=== PATIENT | female | born 1940 | race Caucasian/White ===

== ENCOUNTER 2016-11-04 10:58 | Inpatient (IN) | payer OTHER ==
[~2016-11-04] VITALS: Ht 154.9 cm; Wt 66.8 kg
[2016-11-04 14:10] VITALS: BP 130/66; PULSE 85; TEMP 37.9; Ht 154.9 cm; Wt 66.8 kg
[2016-11-04 14:54] VITALS: BP 120/67; PULSE 87; TEMP 37.5; O2SAT 93
[2016-11-04] MEDS ORDERED: NURSING VERBAL MED ORDER ONE ×2 (15:00→18:00)
[2016-11-04] MEDS ORDERED: LISIPOW (15:05)
[2016-11-04] MEDS ORDERED: LISI-725 PO (15:05)
[2016-11-04] MEDS ORDERED: LEVOPOW36 (15:07)
[2016-11-04] MEDS ORDERED: BMX1 PO (15:37)
[2016-11-04] MEDS ORDERED: MULT-506 PO (15:37)
[2016-11-04] MEDS ORDERED: DLN100 PO ×2 (15:37)
[2016-11-04] MEDS ORDERED: METO1TAB69 PO (15:37)
[2016-11-04] MEDS ORDERED: FOLI1TAB7 PO (15:37)
[2016-11-04] MEDS ORDERED: SIMV40TA2 PO (15:37)
[2016-11-04] MEDS ORDERED: METH2.5T PO (15:37)
[2016-11-04] MEDS ORDERED: CHOL2000 PO (15:37)
[2016-11-04] MEDS ORDERED: SULF500T36 PO (15:37)
[2016-11-04] MEDS ORDERED: FSMD/70 PO (15:37)
[2016-11-04] MEDS ORDERED: LEVO50TA6 PO (15:37)
[2016-11-04] MEDS ORDERED: CALC1TAB9 (15:37)
[2016-11-04] MEDS ORDERED: IBUP-103 PO (15:37)
[2016-11-04] MEDS ORDERED: ONDANSETRON INJ 2 MG/ML 2 ML VIAL IV PRN (16:00)
[2016-11-04] MEDS ORDERED: HYDROmorphone INJ 1 MG/ML SYR IV PRN (16:00)
[2016-11-04] MEDS: SODIUM CHLORIDE 0.9% 1000ML 1,000 ML IV SCH (16:09)
--- NOTE | 2016-11-04 16:35 | DIAGNOSTIC IMAGING REPORT ---
RIGHT HIP UNILATERAL 2 VIEWS CLINICAL HISTORY: Right hip pain. COMPARISON: Outside CT scan dated 11/04/2016 DISCUSSION: There is a subcapital right hip fracture. There is no dislocation. IMPRESSION: Acute minimally displaced subcapital right hip fracture. Electronically signed by: Marty Casas M.D. 11/04/2016 4:33 PM Dictated Date/Time: 11/04/2016 4:32 PM
[2016-11-04] MEDS ORDERED: PNEUMOCOCCAL POLYSACCHARIDES 25 MCG/0.5 ML VIAL/SYR IM. ONE (16:45)
[2016-11-04] MEDS ORDERED: PNEUMOCOCCAL ADMINISTRATION CHARGE ONE (16:45)
[2016-11-04] MEDS: OXYCODONE HCL IR 5 MG TAB (IMMEDIATE RELEASE) PO PRN ×2 (17:41→21:39)
[2016-11-04] MEDS: HYDROmorphone INJ 1 MG/ML SYR IV PRN (19:18)
[2016-11-04 20:44] LABS: HEMATOCRIT 36.7 % (37-47); MEAN CELL VOLUME 98.4 fL (80-100); MEAN CORPUSCULAR HGB CONC 33.5 g/dl (32-36); PLATELET COUNT 247 K/uL (130-400); RED BLOOD COUNT 3.73 M/uL (4.2-5.4)
--- NOTE | 2016-11-04 21:00 | DIAGNOSTIC IMAGING REPORT ---
CHEST ONE VIEW PORTABLE CLINICAL HISTORY: Preop chest SUBCAPITAL RIGHT HIP FRACTURE COMPARISON STUDY: Outside study dated 11/04/2016 FINDINGS: The cardiac and mediastinal contours remain stable. There is no focal pulmonary consolidation. There is no failure. No pleural effusions are visualized. Surgical clips are present in the left axillary region.[ IMPRESSION: AP portable study. No acute findings. Electronically signed by: Marty Casas M.D. 11/04/2016 8:59 PM Dictated Date/Time: 11/04/2016 8:58 PM
--- NOTE | 2016-11-04 21:05 | Medical Consult ---
Consultation Date of Consultation: Nov 04, 2016. Attending Physician: Austyn Santo D.O. History of Present Illness 76 y/o F hx RA, HTN, seizures - pt suffered a fall during rehab today and sustained a She is due for surgery AM and the medical service is asked to see her for a preop evaluation. She had lumbar spine surgery 05/13 which per the pt was uncomplicated. She has no history opf coagulopathy, reaction to anesthesia, PAT , CAD or CHF. Her mobility is limited however she denies becoming SOB when participating in PT or ambulating in general. Family History Father from "old age" 90 Mother form "heart problems" 80 Social History No history of drinking or smoking Smoking Status: Never Smoker Allergies Coded Allergies: No Known Allergies (Unverified , 11/04/16) Current Inpatient Medications Current Inpatient Medications Medications (Trade) Dose Ordered Sig/[place]rence Route Start Time Stop Time Status Last Admin Dose Admin Pneumococcal Polysaccharide Vaccine 25 mcg 25 mcg ONCE ONCE IM. 11/05/16 08:00 11/05/16 08:01 Sodium Chloride (Nss 1000ml) 1,000 ml @ 100 mls/hr Q10H IV 11/04/16 16:00 12/04/16 15:59 11/04/16 16:09 100 MLS/HR Lisinopril (Zestril Tab) 20 mg DAILY PO 11/05/16 09:00 12/05/16 08:59 Oxycodone HCl (Roxicodone Immediate Rel Tab) `1-2 tabs for pain 1 tab ... Q4H PRN PO 11/04/16 16:00 11/18/16 15:59 11/04/16 17:41 10 MG Docusate Sodium (coLACE CAP) 100 mg BID PO 11/04/16 21:00 12/04/16 20:59 Ondansetron HCl 4 mg 4 mg Q6H PRN IV 11/04/16 16:00 12/04/16 15:59 Cefazolin Sodium (Ancef 2000mg/60 ml D5W) 60 ml @ 100 mls/hr PREOP IV 11/05/16 06:00 11/05/16 18:00 Hydromorphone HCl (Dilaudid Inj) 0.3 mg Q4H PRN IV 11/04/16 18:15 11/18/16 18:14 11/04/16 19:18 0.3 MG Review of Systems Constitutional: No chills, No fever, No sweats Eyes: No eye pain, No worsening of vision ENT: No hearing loss, No nasal symptoms, No unusual epistaxis Respiratory: No cough, No sputum, No wheezing Cardiovascular: No PND, No chest pain, No orthopnea Abdomen: No nausea, No pain, No vomiting Musculoskeletal: + joint pain (Pain at fracture site R hip), + muscle pain Genitourinary - Female: No dysuria, No urinary frequency, No urinary urgency Neurologic: No memory loss, No paralysis, No weakness Psychiatric: No depression symptoms Endocrine: No fatigue Hematologic / Lymphatic: No abnormal bleeding/bruising Integumentary: No rash Allergic / Immunologic: No environmental allergies Physical Exam Date Time Temp Pulse Resp B/P Pulse Ox O2 Delivery O2 Flow Rate FiO2 11/04/16 16:00 Room Air 11/04/16 14:54 37.5 87 16 120/67 93 Room Air 11/04/16 14:10 37.9 85 22 130/66 Room Air General Appearance: WD/WN, no apparent distress Head: normocephalic, atraumatic Eyes: normal inspection, PERRL, EOMI ENT: normal ENT inspection, hearing grossly normal Neck: supple, no JVD Respiratory/Chest: chest non-tender, lungs clear, normal breath sounds Cardiovascular: regular rate, rhythm, no edema, no gallop Abdomen/GI: normal bowel sounds, non tender, soft Back: normal inspection, no CVA tenderness Extremities/Musculoskelatal: no calf tenderness, no pedal edema, + pertinent finding (Arthritic changes of hands noted - RLE - shotening/rotation) Neurologic/Psych: floor refinisher II-XII nml as tested, no motor/sensory deficits, alert, normal mood/affect, normal reflexes, oriented x 3 Skin: normal color, warm/dry, no rash Laboratory Results Last 24 Hours Test 11/04/16 20:30 11/04/16 20:45 White Blood Count 15.10 K/uL Red Blood Count 3.73 M/uL Hemoglobin 12.3 g/dL Hematocrit 36.7 % Mean Corpuscular Volume 98.4 fL Mean Corpuscular Hemoglobin 33.0 pg Mean Corpuscular Hemoglobin Concent 33.5 g/dl RDW Standard Deviation 53.3 fL RDW Coefficient of Variation 15.0 % Platelet Count 247 K/uL Mean Platelet Volume 9.0 fL Assessment & Plan 76 y/o F post hip fracture presenting for AM repair 1) Pre-op - as above no major risk appreciated and recent major surgery which was uncomplicated, EKG WNL - RCRI < 0.4% although it is not possible to properly gauge her exercise tolerance. Can likely proceed to surgery without further W/U. Hold Bumex, Lisinopril, cont Bblocker - check renal function ( labs pending), 2) HTN - Bumex and Lisinopril held - monitor BP - reintroduce post-op after BMP if unchanged although Bumex can be held for a few days - used for LE edema rather than CHF 3) Seizure disorder - continue Dilantin 4) RA - would consult her diagrammer and seamer regarding holding MTX for a few weeks to reduce risk of post-op infection - she is due to take next Sun. Med service will follow daily pending D/C Total time for this consult including review of labs, meds, EKG - discussion/ exam with pt - 29 min
[2016-11-04] MEDS: DOCUSATE SODIUM 100 MG CAP PO SCH (21:37)
[2016-11-04] MEDS: PHENYTOIN SODIUM ER 100 MG CAP PO SCH (21:37)
[2016-11-04 22:54] VITALS: BP 118/76; PULSE 89; TEMP 36.5; O2SAT 97
[2016-11-05] VITALS (16 sets, daily range): BP systolic 74–131; BP diastolic 43–72; PULSE 62–100; TEMP 36.3–37; O2SAT 93–100
[2016-11-05] MEDS: HYDROmorphone INJ 1 MG/ML SYR IV PRN ×10 (00:12→10:30)
[2016-11-05] MEDS: SODIUM CHLORIDE 0.9% 1000ML 1,000 ML IV SCH ×3 (01:29→21:09)
[2016-11-05] MEDS: LEVOTHYROXINE 50 MCG TAB PO SCH ×3 (05:25→11:16)
[2016-11-05] MEDS ORDERED: CEFAZOLIN 2000 MG/60 ML D5W IV SCH (06:00)
[2016-11-05] MEDS ORDERED: PROPOFOL IV EMULSION 10 MG/ML 20 ML VIAL IV ONE (07:15)
[2016-11-05] MEDS ORDERED: LIDOCAINE HCL 2% 2 ML VIAL (20MG/ML) ONE (07:15)
[2016-11-05] MEDS ORDERED: ONDANSETRON INJ 2 MG/ML 2 ML VIAL ONE (07:15)
[2016-11-05] MEDS ORDERED: FENTANYL CITRATE INJ 50 MCG/1 ML 2 ML VIAL ONE ×2 (07:15→08:49)
[2016-11-05] MEDS ORDERED: ROCURONIUM BROMIDE 10 MG/ML 5 ML VIAL ONE (07:38)
[2016-11-05] MEDS: METOPROLOL SUCC 50MG EXT REL TAB PO SCH (07:38)
[2016-11-05] MEDS ORDERED: DEXAMETHASONE SOD INJ 4 MG/ML VIAL ONE (07:38)
[2016-11-05] MEDS ORDERED: PNEUMOCOCCAL ADMINISTRATION CHARGE ONE (08:00)
[2016-11-05] MEDS ORDERED: PNEUMOCOCCAL POLYSACCHARIDES 25 MCG/0.5 ML VIAL/SYR IM. ONE (08:00)
--- NOTE | 2016-11-05 08:12 | History and Physical ---
History & Physical Date Nov 05, 2016. Chief Complaint Right femoral neck fracture. Fall at home. History of Present Illness The patient is a 76 year old female with complaints of right hip fracture. Past Medical/Surgical History Hypertension, hypercholesterolemia, seizure disorder, arthritis, osteoporosis, RA, Back fusion, Cataracts, Breast lumpectomy left.. Allergies Coded Allergies: No Known Allergies (Unverified , 11/04/16) Home Medications Scheduled Alendronate/Cholecalciferol (Fosamax+D 70MG/2800 Iu), 1 TABLET PO WK Bumetanide (Bumetanide), 2 MG PO BID Calcium Citrate-Vitamin D (Citracal + D3 Maximum), DAILY Cholecalciferol (Vitamin D3), 1 CAP PO DAILY Folic Acid (Folvite), 1 TAB PO DAILY Ibuprofen Tab (Advil), 200 MG PO BID Levothyroxine Sodium (Levothyroxine Sodium), 1 TAB PO DAILY Lisinopril (Zestril), 20 MG PO DAILY Methotrexate (Methotrexate), 2.5 MG PO 10XWK Metoprolol Succ (Toprol Xl) (Toprol-Xl ), 100 MG PO DAILY Multivitamin (Multivitamin), 1 TAB PO DAILY Phenytoin Sodium (Dilantin), 100 MG PO QDB Phenytoin Sodium (Dilantin), 200 MG PO HS Simvastatin (Zocor), 40 MG PO DAILY Sulfasalazine (Azulfidine), 1,000 MG PO BID Physical Examination Skin: warm/dry, no rash Eyes: normal inspection, EOMI, sclerae normal ENT: normal ENT inspection, pharynx normal Head: normocephalic, atraumatic Neck: supple, no adenopathy, trachea midline Respiratory/Chest: lungs clear, normal breath sounds, no respiratory distress Cardiovascular: regular rate, rhythm, no edema, no murmur Abdomen / GI: normal bowel sounds, non tender Back: normal inspection Extremities: + pertinent finding (right hip/groin pain and tenderness with exam. Pain with heel strike and internal/external rotation right hip, DP/PT 2/4 B LE) Neurologic/Psych: no motor/sensory deficits, alert, normal reflexes, oriented x 3 Diagnosis Right minimally displaced femoral neck fracture S/P fall at home. ASA Classification: ASA Class III (d/w anesthesia) Plan of Treatment ORIF right hip fracture. Pre op anbx Consent on chart.
--- NOTE | 2016-11-05 08:12 | History & Physical Bridge Note ---
H&P Re-Evaluation Bridge Note: I have examined the patient, reviewed the History & Physical and in the interval since the performance of the History & Physical I have noted the following changes of clinical significance: No changes noted
[2016-11-05] MEDS ORDERED: PHENYLEPHRINE 100MCG/ML 5ML SYR ONE (08:22)
[2016-11-05] MEDS ORDERED: CEFAZOLIN SOD 1 GM VIAL ONE (08:23)
[2016-11-05] MEDS ORDERED: ONDANSETRON INJ 2 MG/ML 2 ML VIAL IV PRN (08:45)
[2016-11-05] MEDS ORDERED: FLUMAZENIL 0.1 MG/1 ML 10 ML VIAL IV PRN (08:45)
[2016-11-05] MEDS ORDERED: EpHEDrine SULFATE INJ 50 MG/ML AMP IV PRN (08:45)
[2016-11-05] MEDS ORDERED: NALOXONE HCL 0.4 MG/1 ML VIAL/CARP IV PRN (08:45)
[2016-11-05] MEDS ORDERED: PROMETHAZINE HCL INJ 12.5 MG in SODIUM CHLORIDE 0.9% 50ML 50 ML IV PRN (08:45)
[2016-11-05] MEDS ORDERED: ATROPINE SULFATE 0.1 MG/ML 5ML SYR IV PRN (08:45)
[2016-11-05] MEDS ORDERED: LABETALOL HCL IV 5 MG/ML 20ML IV PRN (08:45)
[2016-11-05] MEDS ORDERED: LISINOPRIL 20 MG TAB PO SCH (09:00)
[2016-11-05] MEDS ORDERED: NEOSTIGMINE METHYLSULFATE 5 MG/5 ML SYR ONE (09:32)
[2016-11-05] MEDS ORDERED: GLYCOPYRROLATE INJ 0.2 MG/ML VIAL ONE (09:32)
[2016-11-05] MEDS ORDERED: HYDROmorphone INJ 2 MG/ML SYR/VIAL ONE (09:58)
--- NOTE | 2016-11-05 10:04 | [facility] Post Operative Brief Note ---
Immediate Operative Summary Operative Date Nov 05, 2016. Pre-Operative Diagnosis Right minimally displaced femoral neck fracture Post-Operative Diagnosis Same as preoperative diagnosis Procedure(s) Performed Open reduction internal fixation right femoral neck fracture, cannulated screws. Surgeon Dr. Santo Soda Maker Surgeon(s) Shaheen Gomez PA-C Estimated Blood Loss 15 ml Findings See Dict Specimens None Drains None Anesthesia GLMA Complication(s) None Disposition Recovery Room / PACU
--- NOTE | 2016-11-05 10:09 | DIAGNOSTIC IMAGING REPORT ---
INTRAOPERATIVE RADIOGRAPHS CLINICAL HISTORY: Open reduction and internal fixation of the right hip. Fluoroscopy time: 157 seconds. FINDINGS: 2 spot fluoroscopic views of the right hip are correlated with radiographs dated 11/04/2016. There are 3 intertrochanteric cortical lag screws transfixing a subcapital right femoral fracture. The orthopedic hardware appears intact. IMPRESSION: Intraoperative images from open reduction and internal fixation of the right femur as above. Electronically signed by: Zohaib Walker M.D. 11/05/2016 10:07 AM Dictated Date/Time: 11/05/2016 10:06 AM
[2016-11-05] MEDS ORDERED: BISACODYL 10 MG SUPP PR PRN (10:15)
[2016-11-05] MEDS ORDERED: ZOLPIDEM TARTRATE 5 MG TAB PO PRN (10:15)
[2016-11-05] MEDS ORDERED: MAGNESIUM HYDROXIDE SUSP 30 ML UDC PO PRN (10:15)
[2016-11-05] MEDS ORDERED: SOD PHOSPHATE/SOD BIPHOSPHATE ENEMA 132 ML BTL PR PRN (10:15)
[2016-11-05] MEDS ORDERED: OXYCODONE HCL IR 5 MG TAB (IMMEDIATE RELEASE) PO PRN (10:15)
[2016-11-05] MEDS ORDERED: NO NSAIDS SCH (10:15)
[2016-11-05] MEDS ORDERED: ALUMINUM/MAGNESIUM/SIMETH (MAALOX MAX) 30 ML UDC PO PRN (10:15)
--- NOTE | 2016-11-05 10:42 | Anesthesiology Progress Note ---
Anesthesia Post Op Note Date & Time Nov 05, 2016 at 10:42 Vital Signs Pain Intensity: 2 Vital Signs Past 12 Hours Date Time Temp Pulse Resp B/P Pulse Ox O2 Delivery O2 Flow Rate FiO2 11/05/16 10:30 36.5 66 16 106/57 99 Nasal Cannula 2 11/05/16 10:20 65 16 104/54 98 Nasal Cannula 2 11/05/16 10:10 70 16 108/67 99 Nasal Cannula 2 11/05/16 10:00 78 16 75/48 95 Nasal Cannula 2 11/05/16 09:53 36.6 82 16 97/50 98 Nasal Cannula 2 11/05/16 07:35 95 112/61 95 Room Air 11/05/16 07:10 36.7 100 21 119/50 99 Room Air 11/05/16 05:47 36.7 94 18 130/71 94 Room Air 11/05/16 00:15 Room Air 11/04/16 22:54 36.5 89 16 118/76 97 Room Air Notes Mental Status: alert / awake / arousable, participated in evaluation Pt Amnestic to Procedure: Yes Nausea / Vomiting: adequately controlled Pain: adequately controlled Airway Patency, RR, SpO2: stable & adequate BP & HR: stable & adequate Hydration State: stable & adequate Anesthetic Complications: no major complications apparent
--- NOTE | 2016-11-05 10:59 | OPERATIVE REPORT ---
DATE OF OPERATION: 11/05/2016 PREOPERATIVE DIAGNOSIS: Right minimally displaced femoral neck fracture. POSTOPERATIVE DIAGNOSIS: Same. PROCEDURE: Open reduction and internal fixation of right femoral neck fracture with cannulated screws x3. SURGEON: Dr. Austyn Santo. PRE SCHOOL MANAGER: Artem Gomez PA-C, who was present for patient positioning, sterile prep and drape, management of retractors and instruments. He was present through the critical portions of the case including wound closure, application of sterile dressing and transport of the patient to recovery. ANESTHESIA: General LMA. SPECIMENS: None. DRAINS: None. COMPLICATIONS: None. BLOOD LOSS: 15 mL. PERTINENT HISTORY: This is a 76-year-old female, who tripped and fell at her home, transported initially to [facility] for definitive care and management. The patient was scheduled for surgery as indicated. All potential risks, benefits, complications, alternatives, rehab, potential for incomplete relief of symptoms, need for further surgery, DVT, PE, , persistent pain, swelling, scarring, weakness, neurovascular injury, bone fracture, hardware failure, nonunion, malunion, and wound complications were discussed with the patient. The patient decided to proceed with the procedure as indicated. DESCRIPTION OF PROCEDURE: The patient was taken to the operative suite, placed supine on the operating room table. The consent was reviewed and proper operative site was identified and then anesthesia was administered appropriately. Next, the patient was placed on the fracture table. The affected limb was placed to padded boot traction and the unaffected leg was placed in a well leg hernandez, flexed and abducted and slightly externally rotated. The well leg was then padded and protected. All other bony prominences were properly padded and protected. The post was padded in the peroneum. Next, the affected limb was placed under appropriate traction using the fracture table and initial reduction was performed under live fluoroscopic assistance. Next, the affected hip was then sterilely prepped and draped in usual fashion. Next, the greater trochanter of the hip was visualized under C-arm fluoroscopy. A 10 blade scalpel incision was made along the lateral aspect of the hip inferior to the greater trochanter. This incision was then carefully deepened through subcutaneous tissue. Meticulous hemostasis was achieved with electrocautery. Next, the iliotibial band was then incised with a 10 blade scalpel and appropriate bleeders were cauterized as well. Next, using live fluoroscopic assistance 7.3 mm cannulated guide pin was placed into the central aspect of the lateral femur directed into the inferior one-third of the femoral neck and head, inferior and central both confirmed with AP and lateral projections. Next, the cannulated guide was then used to place 2 further 7.3 mm cannulated screw guide pins superior anterior and superior posterior in relation to the inferiorly placed guide pin under AP and lateral live fluoroscopic assistance. Next, the guide pins were all noted to be within 5 mm of the subchondral bone on AP and lateral projections. This was then followed by measurement of the appropriate length for planned screw implantation and then the lateral cortex was drilled, this followed by countersinking of the planned screw sites followed by implantation of the 7.3 mm cannulated screws of appropriate length. This was confirmed under live fluoroscopic assistance. Next, a hand screwdriver was used to tighten the screws to fully seat the fracture and compress it confirmed using x-ray. Next, the guide pins were removed. The wound was copiously irrigated with sterile normal saline. Final x-rays obtained in both AP and lateral projections, followed by final irrigation with sterile normal saline, closure of the fascia with interrupted #1 Vicryl sutures, closure of the dermis with buried interrupted 2-0 Vicryl. The skin was then closed using skin manan. A sterile compressive dressing was applied. The patient was awakened and taken to recovery in stable condition. I attest to the content of the Intraoperative Record and any orders documented therein. Any exceptio ns are noted below.
[2016-11-05] MEDS: SIMVASTATIN 40 MG TAB PO SCH (13:54)
[2016-11-05] MEDS: PHENYTOIN SODIUM ER 100 MG CAP PO SCH ×2 (13:54→20:53)
[2016-11-05] MEDS: DOCUSATE SODIUM 100 MG CAP PO SCH ×2 (13:55→20:52)
[2016-11-05] MEDS: ACETAMINOPHEN 500 MG TAB PO SCH ×2 (13:55→20:54)
--- NOTE | 2016-11-05 14:42 | Progress Note ---
Subjective Date of Service: Nov 05, 2016. Subjective Pt evaluation today including: conversation w/ patient, conversation w/ family (), physical exam, review of studies, review of inpatient medication list Pain: right hip, less than yesterday PO Intake: tolerating PO since surgery Voiding: zavala catheter in place patient doing better overall, less pain in the right hip, surgery went well today no chest pain, no dyspnea, no nausea, no abdominal pain, no light headedness tolerating liquids, ate a little lunch BP running low normal, no symptoms Review of Systems Musculoskeletal: + joint pain (right hip) All Other Systems: Reviewed and Negative Medications Current Inpatient Medications Medications (Trade) Dose Ordered Sig/[place]rence Route Start Time Stop Time Status Last Admin Dose Admin Sodium Chloride (Nss 1000ml) 1,000 ml @ 100 mls/hr Q10H IV 11/04/16 16:00 12/04/16 15:59 11/05/16 11:00 100 MLS/HR Oxycodone HCl (Roxicodone Immediate Rel Tab) `1-2 tabs for pain 1 tab ... Q4H PRN PO 11/04/16 16:00 11/18/16 15:59 11/04/16 21:39 10 MG Docusate Sodium (coLACE CAP) 100 mg BID PO 11/04/16 21:00 12/04/16 20:59 11/05/16 13:55 100 MG Ondansetron HCl 4 mg 4 mg Q6H PRN IV 11/04/16 16:00 12/04/16 15:59 11/04/16 21:07 4 MG Cefazolin Sodium (Ancef 2000mg/60 ml D5W) 60 ml @ 100 mls/hr PREOP IV 11/05/16 06:00 11/05/16 18:00 11/05/16 08:31 100 MLS/HR Hydromorphone HCl (Dilaudid Inj) 0.3 mg Q4H PRN IV 11/04/16 18:15 11/18/16 18:14 11/05/16 05:07 0.3 MG Folic Acid (Folvite Tab) 1 mg DAILY PO 11/05/16 09:00 12/05/16 08:59 11/05/16 13:55 1 MG Levothyroxine Sodium (Synthroid Tab) 50 mcg DAILYBB PO 11/05/16 06:00 12/05/16 05:59 11/05/16 11:16 50 MCG Metoprolol Succinate (Toprol Xl Tab) 150 mg DAILY PO 11/05/16 09:00 12/05/16 08:59 11/05/16 07:38 150 MG Phenytoin Sodium (Dilantin Er Cap) 100 mg QDB PO 11/05/16 08:30 12/05/16 08:29 11/05/16 13:54 100 MG Phenytoin Sodium (Dilantin Er Cap) 200 mg HS PO 11/04/16 21:00 12/04/16 20:59 11/04/16 21:37 200 MG Simvastatin (Zocor Tab) 40 mg DAILY PO 11/05/16 09:00 12/05/16 08:59 11/05/16 13:54 40 MG Miscellaneous Medication (No Nsaids) 1 ea UD N/A 11/05/16 10:15 12/05/16 10:14 Morphine Sulfate (MoRPHine SULFATE INJ) 1 mg Q1HWA PRN IV 11/05/16 10:15 11/19/16 10:14 Acetaminophen (Tylenol Tab) 1,000 mg Q8H PO 11/05/16 12:00 12/05/16 11:59 11/05/16 13:55 1,000 MG Magnesium Hydroxide (Milk Of Magnesia Susp) 30 ml Q6H PRN PO 11/05/16 10:15 12/05/16 10:14 Bisacodyl (Dulcolax Supp) 10 mg DAILY PRN MN 11/05/16 10:15 12/05/16 10:14 Sodium Biphosphate/ Sodium Phosphate (Fleet Enema) 132 ml DAILY PRN MN 11/05/16 10:15 12/05/16 10:14 Senna (Senokot Tab) 17.2 mg HS PO 11/05/16 21:00 12/05/16 20:59 Diphenhydramine HCl (Benadryl Cap) 25 mg Q8H PRN PO 11/05/16 10:15 12/05/16 10:14 Al Hydrox/Mg Hydrox/Simethicone (Maalox Max Susp) 15 ml Q4H PRN PO 11/05/16 10:15 12/05/16 10:14 Zolpidem Tartrate (Ambien Tab) 5 mg HSZ PRN PO 11/05/16 10:15 12/05/16 10:14 Multivitamins (Multivitamin Tab) 1 tab QAM PO 11/06/16 09:00 12/06/16 08:59 Pantoprazole Sodium 40 mg 40 mg QAM PO 11/06/16 09:00 12/06/16 08:59 Cefazolin Sodium/ Dextrose (Ancef Iv/D5 50ml) 55 ml @ 100 mls/hr Q8H IV 11/05/16 16:00 11/06/16 00:32 Enoxaparin Sodium (Lovenox Inj) 30 mg Q12H SQ 11/05/16 10:15 12/05/16 10:14 UNV Objective Vital Signs Date Time Temp Pulse Resp B/P Pulse Ox O2 Delivery O2 Flow Rate FiO2 11/05/16 14:00 70 16 98/61 99 Nasal Cannula 2.0 11/05/16 12:56 36.5 78 20 97/61 99 Nasal Cannula 2.0 11/05/16 12:06 36.4 66 20 104/64 100 Nasal Cannula 2.0 11/05/16 11:31 36.3 65 17 106/68 99 Nasal Cannula 2.0 11/05/16 11:00 36.6 71 16 104/61 99 Nasal Cannula 2.0 11/05/16 11:00 Nasal Cannula 2.0 11/05/16 10:50 36.5 62 16 105/57 100 Nasal Cannula 2 11/05/16 10:40 36.5 62 16 105/57 100 Nasal Cannula 2 11/05/16 10:30 36.5 66 16 106/57 99 Nasal Cannula 2 11/05/16 10:20 65 16 104/54 98 Nasal Cannula 2 11/05/16 10:10 70 16 108/67 99 Nasal Cannula 2 11/05/16 10:00 78 16 75/48 95 Nasal Cannula 2 11/05/16 09:53 36.6 82 16 97/50 98 Nasal Cannula 2 11/05/16 07:35 95 112/61 95 Room Air 11/05/16 07:10 36.7 100 21 119/50 99 Room Air 11/05/16 05:47 36.7 94 18 130/71 94 Room Air 11/05/16 00:15 Room Air 11/04/16 22:54 36.5 89 16 118/76 97 Room Air 11/04/16 16:00 Room Air 11/04/16 14:54 37.5 87 16 120/67 93 Room Air Physical Exam General Appearance: WD/WN, no apparent distress Eyes: normal inspection, EOMI, sclerae normal ENT: normal ENT inspection, hearing grossly normal, pharynx normal Neck: supple, no adenopathy, no JVD, trachea midline Respiratory/Chest: chest non-tender, lungs clear, normal breath sounds, no respiratory distress, no accessory muscle use Cardiovascular: regular rate, rhythm, no edema, no gallop, no JVD, no murmur Abdomen: normal bowel sounds, non tender, soft, no organomegaly Extremities: normal range of motion, non-tender, normal inspection, no pedal edema, no calf tenderness Neurologic/Psychiatric: video software engineer II-XII nml as tested, no motor/sensory deficits, alert, normal mood/affect, oriented x 3 Skin: normal color, warm/dry, no rash Laboratory Results Last 24 Hours Test 11/04/16 20:30 11/04/16 21:10 White Blood Count 15.10 K/uL Red Blood Count 3.73 M/uL Hemoglobin 12.3 g/dL Hematocrit 36.7 % Mean Corpuscular Volume 98.4 fL Mean Corpuscular Hemoglobin 33.0 pg Mean Corpuscular Hemoglobin Concent 33.5 g/dl RDW Standard Deviation 53.3 fL RDW Coefficient of Variation 15.0 % Platelet Count 247 K/uL Mean Platelet Volume 9.0 fL Pro-B-Type Natriuretic Peptide 585 pg/ml Activated Partial Thromboplast Time 25.8 SECONDS Partial Thromboplastin Ratio 1.0 Assessment and Plan 76 y/o F with h/o HTN, presented with right hip fracture after a mechanical fall , no loss of consciousness. 1) Right hip fracture, ORIF on 11/05, no complications BP running low normal, no symptoms, continue fluids overnight and encourage PO intake, hold BP medications activity level, DVT prophylaxis and d/c planning per orthopedics encourage ISB use, will watch for return of bowel function 2) HTN - continue to hold Bumex and Lisinopril, check BMP tomorrow AM, can resume Lisinopril if Cr normal and BP improves would hold Bumex until discharge, she takes for LE edema continue beta kelle with hold parameters 3) Seizure disorder - continue Dilantin 4) RA - would consult her bulk intake worker regarding holding MTX for a few weeks to reduce risk of post-op infection - she is due to take next Sun. can call them on discharge Plan: check CBC and BMP in the morning, look for BP to normalize, if BP improves and she is taking PO, would d/c fluids tomorrow consider signing off tomorrow if labs normal and BP improves
[2016-11-05] MEDS: OXYCODONE HCL IR 5 MG TAB (IMMEDIATE RELEASE) PO PRN ×2 (14:44→22:19)
[2016-11-05] MEDS ORDERED: NURSING VERBAL MED ORDER ONE (15:15)
[2016-11-05] MEDS: CEFAZOLIN IV 1,000 MG in DEXTROSE 5% 50ML 50 ML IV SCH ×2 (15:47→23:14)
--- NOTE | 2016-11-05 15:52 | Pharmacy Progress Note ---
Enoxaparin Dosing Consult Date of Service: Nov 05, 2016. Pharmacy Dosing Scope Pharmacy is consulted to review the use of ENOXAPARIN SQ for DVT prophylaxis following ORIF of R hip fx. Subjective The patient is a 76 year old female admitted on Nov 04, 2016 at 13:48 for Rt Hip Fracture following fall. Pertinent PMH: * hypertension * seizure d/o * rheumatoid arthritis * osteoarthritis * back fusion * hypercholesterolemia Objective Height (Feet): 5 Height (Inches): 1.00 Weight (Kilograms): 66.800 Laboratory Results: Last 24 Hours Test 11/04/16 20:30 11/04/16 21:10 Hematocrit 36.7 % (37-47) Hemoglobin 12.3 g/dL (12.0-16.0) Platelet Count 247 K/uL (130-400) Activated Partial Thromboplast Time 25.8 SECONDS (21.0-31.0) Partial Thromboplastin Ratio 1.0 Last 72 Hours Test 11/04/16 20:30 Platelet Count 247 K/uL Assessment & Plan Regarding PROPHYLACTIC Enoxaparin: We have no labs to assess patient's baseline renal function. Will check PRP with AM labs. She is currently ordered ENOXAPARIN 30mg Q 12 hours, however will reduce to 40mg Q 24 hrs as renal fxn unknown and both regimens are acceptable for prophylaxis following hip fx surgery. Patient's BMI 37.8 and wt 66.8kg, therefor need for a higher ENOXAPARIN dose likely unwarranted. If CrCl less than 30cc/min will reduce dose to 30mg Q 24 hrs. Latest CBC reviewed, Plt 247 yesterday. EBL from surgery ~15cc. No antiplatelet agents ordered at this time. Provider has stated the Enoxaparin to begin tomorrow @ 0800. Patient received general anesthesia, no neuraxial anesthesia noted with current documentation. Labs: * Ongoing Labs (P&T Approved): CBC q 2 days x 2 weeks, serum creat q 2 days We will continue to monitor this patient and make adjustments as needed. Thank you.
[2016-11-05] MEDS: SENNA 8.6 MG TAB PO SCH (20:53)
[2016-11-05] MEDS ORDERED: DOCUSATE SODIUM 100 MG CAP PO SCH (21:00)
[2016-11-06] MEDS: OXYCODONE HCL IR 5 MG TAB (IMMEDIATE RELEASE) PO PRN ×3 (04:15→18:25)
[2016-11-06] MEDS: ACETAMINOPHEN 500 MG TAB PO SCH ×3 (04:16→19:46)
[2016-11-06 04:49] VITALS: BP 131/81; PULSE 96; TEMP 36.8; O2SAT 94
[2016-11-06 06:14] LABS: HEMATOCRIT 29.5 % (37-47); MEAN CELL VOLUME 98.3 fL (80-100); MEAN CORPUSCULAR HEMOGLOBIN 32.7 pg (25-34); MEAN CORPUSCULAR HGB CONC 33.2 g/dl (32-36); MEAN PLATELET VOLUME 8.9 fL (7.4-10.4); PLATELET COUNT 206 K/uL (130-400); WHITE BLOOD COUNT 10.93 K/uL (4.8-10.8)
[2016-11-06 06:47] LABS: BUN/CREATININE RATIO 14.4 (10-20); CALCIUM 8.2 mg/dl (8.5-10.1); CREATININE 0.6 mg/dl (0.60-1.20); POTASSIUM 4.1 mmol/L (3.5-5.1)
[2016-11-06 07:30] VITALS: O2SAT 98
[2016-11-06] MEDS: MoRPHine SULFATE 2 MG/ML CARP IV PRN (07:34)
[2016-11-06] MEDS: SODIUM CHLORIDE 0.9% 1000ML 1,000 ML IV SCH (07:38)
[2016-11-06] MEDS: ENOXAPARIN 40 MG/0.4 ML SYR SQ SCH (07:41)
[2016-11-06] MEDS: PHENYTOIN SODIUM ER 100 MG CAP PO SCH ×2 (07:42→21:07)
[2016-11-06 07:59] VITALS: BP 136/75; PULSE 101; TEMP 36.9; O2SAT 98
--- NOTE | 2016-11-06 08:00 | Orthopedic Progress Note ---
Orthopedic Progress Note Date of Service Nov 06, 2016. Subjective Post OP Day: 1 Reports: feeling well, Denies: SOB, chest pain, light headedness, nausea / vomiting Additional Notes: Having some back pain this AM from being in the same position too long. States she had back surgery 6 mos ago in [place]. Nursing was helping her last night to change positions regularly. No other complaints. Hip pain is controlled presently. Discussed the fact she may need to go to for rehab. Objective calves soft nontender, N/V intact, dressing C/D/I, A&O x3, toes mobile Date Time Temp Pulse Resp B/P Pulse Ox O2 Delivery O2 Flow Rate FiO2 11/06/16 04:49 36.8 96 18 131/81 94 Room Air 11/05/16 23:00 37.0 93 18 131/69 93 Room Air 11/05/16 20:01 36.5 84 16 123/72 99 Nasal Cannula 2.0 11/05/16 17:24 106/62 11/05/16 16:41 114/65 11/05/16 16:13 16 94/51 11/05/16 15:49 101/62 11/05/16 15:38 74/43 11/05/16 15:30 Nasal Cannula 2.0 11/05/16 15:09 36.7 62 16 87/47 94 Nasal Cannula 1.5 11/05/16 14:00 70 16 98/61 99 Nasal Cannula 2.0 11/05/16 12:56 36.5 78 20 97/61 99 Nasal Cannula 2.0 11/05/16 12:06 36.4 66 20 104/64 100 Nasal Cannula 2.0 11/05/16 11:31 36.3 65 17 106/68 99 Nasal Cannula 2.0 11/05/16 11:00 36.6 71 16 104/61 99 Nasal Cannula 2.0 11/05/16 11:00 Nasal Cannula 2.0 11/05/16 10:50 36.5 62 16 105/57 100 Nasal Cannula 2 11/05/16 10:40 36.5 62 16 105/57 100 Nasal Cannula 2 11/05/16 10:30 36.5 66 16 106/57 99 Nasal Cannula 2 11/05/16 10:20 65 16 104/54 98 Nasal Cannula 2 11/05/16 10:10 70 16 108/67 99 Nasal Cannula 2 11/05/16 10:00 78 16 75/48 95 Nasal Cannula 2 11/05/16 09:53 36.6 82 16 97/50 98 Nasal Cannula 2 Laboratory Results 24 Hours: Test 11/06/16 05:56 Hematocrit 29.5 % Hemoglobin 9.8 g/dL Assessment & Plan Assessment: POD 1 s/p ORIF Right Hip Fx with 7.3 cannulated screws. Plan: PT/OT today [facility] Plan for [facility] if approved by insurance Inhouse Planning Pain Management: Morphine, Oxy IR DVT Prophylaxis: TEDs, SCDs, Lovenox Discharge Planning Discharge Planning: rehab hospital
[2016-11-06] MEDS: PANTOprazole SOD 40 MG TAB PO SCH (09:06)
[2016-11-06] MEDS: MULTIVITAMIN TAB PO SCH (09:06)
[2016-11-06] MEDS: METOPROLOL SUCC 50MG EXT REL TAB PO SCH (09:07)
[2016-11-06] MEDS: SIMVASTATIN 40 MG TAB PO SCH (09:07)
[2016-11-06] MEDS: LISINOPRIL 20 MG TAB PO SCH (09:08)
[2016-11-06] MEDS: DOCUSATE SODIUM 100 MG CAP PO SCH (09:10)
[2016-11-06] MEDS ORDERED: DOCUSATE SODIUM 100 MG CAP PO PRN (09:15)
--- NOTE | 2016-11-06 09:21 | Progress Note ---
Subjective Date of Service: Nov 06, 2016. Subjective Pt evaluation today including: conversation w/ patient, physical exam, chart review, lab review, review of studies, review of inpatient medication list Voiding: zavala catheter in place Doing okay, pain well controlled, had breakfast first, Zavala catheter in place, no bowel movement, no other complaints, Review of Systems Constitutional: + fatigue, No chills, No fever, No problem reported, No sweats , No weakness, No weight loss Eyes: No diplopia, No discharge, No eye pain, No redness, No worsening of vision ENT: No dental problems, No hearing loss, No nasal symptoms, No sore throat, No tinnitus, No trouble swallowing, No unusual epistaxis Respiratory: No cough, No dyspnea at rest, No dyspnea on exertion, No hemoptysis, No shortness of breath, No sputum, No wheezing Cardiac: No PND, No chest pain, No claudication, No edema, No orthopnea, No palpitations Abdomen: + problem reported (Zavala in place), No constipation, No diarrhea, No nausea, No pain, No vomiting Musculoskeletal: + joint pain, No calf pain, No muscle pain, No swelling Female : No abnormal vaginal bleeding, No dysuria, No hematuria, No incontinence, No urinary frequency, No vaginal discharge Neurologic: No balance problems, No memory loss, No numbness/tingling, No paralysis, No vertigo, No weakness Psychiatric: No anhedonism, No anxiety, No depression symptoms, No insomnia, No substance abuse Heme: No abnormal bleeding/bruising, No clotting problems, No night sweats, No swollen lymph nodes Endo: No excessive thirst, No excessive urination, No fatigue Skin: No bleeding, No color change, No itch, No new/changing skin lesions, No rash Objective Vital Signs Date Time Temp Pulse Resp B/P Pulse Ox O2 Delivery O2 Flow Rate FiO2 11/06/16 07:59 36.9 101 18 136/75 98 Room Air 11/06/16 04:49 36.8 96 18 131/81 94 Room Air 11/05/16 23:00 37.0 93 18 131/69 93 Room Air 11/05/16 20:01 36.5 84 16 123/72 99 Nasal Cannula 2.0 11/05/16 17:24 106/62 11/05/16 16:41 114/65 11/05/16 16:13 16 94/51 11/05/16 15:49 101/62 11/05/16 15:38 74/43 11/05/16 15:30 Nasal Cannula 2.0 11/05/16 15:09 36.7 62 16 87/47 94 Nasal Cannula 1.5 11/05/16 14:00 70 16 98/61 99 Nasal Cannula 2.0 11/05/16 12:56 36.5 78 20 97/61 99 Nasal Cannula 2.0 11/05/16 12:06 36.4 66 20 104/64 100 Nasal Cannula 2.0 11/05/16 11:31 36.3 65 17 106/68 99 Nasal Cannula 2.0 11/05/16 11:00 36.6 71 16 104/61 99 Nasal Cannula 2.0 11/05/16 11:00 Nasal Cannula 2.0 11/05/16 10:50 36.5 62 16 105/57 100 Nasal Cannula 2 11/05/16 10:40 36.5 62 16 105/57 100 Nasal Cannula 2 11/05/16 10:30 36.5 66 16 106/57 99 Nasal Cannula 2 11/05/16 10:20 65 16 104/54 98 Nasal Cannula 2 11/05/16 10:10 70 16 108/67 99 Nasal Cannula 2 11/05/16 10:00 78 16 75/48 95 Nasal Cannula 2 11/05/16 09:53 36.6 82 16 97/50 98 Nasal Cannula 2 Physical Exam General Appearance: WD/WN, no apparent distress, + pertinent finding (pleasant , conversational, answer questions,) Eyes: normal inspection, PERRL, EOMI, sclerae normal ENT: normal ENT inspection, hearing grossly normal, pharynx normal Neck: supple, no adenopathy, thyroid normal, no JVD, no carotid bruits, trachea midline Respiratory/Chest: chest non-tender, normal breath sounds, no respiratory distress, no accessory muscle use, + decreased breath sounds Cardiovascular: regular rate, rhythm, no edema, no gallop, no JVD, no murmur Abdomen: normal bowel sounds, non tender, soft, no organomegaly, no pulsatile mass Extremities: non-tender, normal inspection, no pedal edema, no calf tenderness , normal capillary refill, pelvis stable, + pertinent finding (right hip incision in dressing, moving toes, cap Refill was normal, no color changes) 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, no motor/sensory deficits, alert, normal mood/affect, oriented x 3 Skin: normal color, warm/dry, no rash Lymphatic: no adenopathy Laboratory Results Last 24 Hours Test 11/06/16 05:56 White Blood Count 10.93 K/uL Red Blood Count 3.00 M/uL Hemoglobin 9.8 g/dL Hematocrit 29.5 % Mean Corpuscular Volume 98.3 fL Mean Corpuscular Hemoglobin 32.7 pg Mean Corpuscular Hemoglobin Concent 33.2 g/dl RDW Standard Deviation 52.9 fL RDW Coefficient of Variation 14.9 % Platelet Count 206 K/uL Mean Platelet Volume 8.9 fL Sodium Level 137 mmol/L Potassium Level 4.1 mmol/L Chloride Level 104 mmol/L Carbon Dioxide Level 26 mmol/L Anion Gap 7.0 mmol/L Blood Urea Nitrogen 9 mg/dl Creatinine 0.60 mg/dl Est Creatinine Clear Calc Drug Dose 71.9 ml/min Estimated GFR () 104.1 Estimated GFR (Non- 89.8 BUN/Creatinine Ratio 14.4 Random Glucose 119 mg/dl Calcium Level 8.2 mg/dl Assessment and Plan 76 y/o F with h/o HTN, presented with right hip fracture after a mechanical fall , Right hip fracture, ORIF on 11/05/2016 , no complications, no loss of consciousness during the fall 1) Right hip fracture, ORIF on 11/05, no complications, POD 1 activity level, DVT prophylaxis and d/c planning per orthopedics encourage ISB use, continue Colace , will watch for return of bowel function , Zavala catheter status to be removed soon after she is able to out of bed with physical setup HTN - better, was borderline hypotensive after procedure , continue to hold Bumex, but restart Lisinopril because of blood pressure is normalized , would hold Bumex until discharge, she takes for LE edema continue beta kelle with hold parameters Seizure disorder -stable, continue Dilantin RA - 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 can call them on discharge Plan: d/c fluids , follow-up PT OT input consider signing off tomorrow if labs normal and BP improves, discharge plan , and DVT prophylaxis per primary team Continued [facility] stay due to: home environment unsafe for pt Discharge planning: rehab hospital
[2016-11-06] MEDS ORDERED: NURSING VERBAL MED ORDER ONE (10:15)
[2016-11-06 15:10] VITALS: BP 116/71; PULSE 101; O2SAT 98
[2016-11-06 16:15] VITALS: O2SAT 98
[2016-11-06] MEDS: SENNA 8.6 MG TAB PO SCH (21:07)
[2016-11-06 23:06] VITALS: BP 126/68; PULSE 85; TEMP 37; O2SAT 96
[2016-11-07] MEDS: OXYCODONE HCL IR 5 MG TAB (IMMEDIATE RELEASE) PO PRN ×2 (00:58→07:18)
[2016-11-07] MEDS: ACETAMINOPHEN 500 MG TAB PO SCH ×3 (03:29→21:07)
[2016-11-07] MEDS: LEVOTHYROXINE 50 MCG TAB PO SCH (05:30)
[2016-11-07 07:15] VITALS: BP 168/91; PULSE 95; TEMP 36.5; O2SAT 95
[2016-11-07 07:18] LABS: HEMATOCRIT 27.5 % (37-47); MEAN CELL VOLUME 95.2 fL (80-100); MEAN CORPUSCULAR HEMOGLOBIN 32.9 pg (25-34); MEAN CORPUSCULAR HGB CONC 34.5 g/dl (32-36); MEAN PLATELET VOLUME 8.7 fL (7.4-10.4); PLATELET COUNT 210 K/uL (130-400); RED BLOOD COUNT 2.89 M/uL (4.2-5.4); WHITE BLOOD COUNT 10.01 K/uL (4.8-10.8)
[2016-11-07 07:45] LABS: BUN/CREATININE RATIO 12.4 (10-20); CALCIUM 8.7 mg/dl (8.5-10.1); CREATININE 0.46 mg/dl (0.60-1.20)
[2016-11-07] MEDS: ENOXAPARIN 40 MG/0.4 ML SYR SQ SCH (07:56)
[2016-11-07] MEDS: PHENYTOIN SODIUM ER 100 MG CAP PO SCH ×2 (07:59→21:08)
[2016-11-07] MEDS: METOPROLOL SUCC 50MG EXT REL TAB PO SCH (09:00)
[2016-11-07 09:06] VITALS: BP 100/51
[2016-11-07] MEDS: LISINOPRIL 20 MG TAB PO SCH (09:08)
[2016-11-07] MEDS: PANTOprazole SOD 40 MG TAB PO SCH (09:08)
[2016-11-07] MEDS: SIMVASTATIN 40 MG TAB PO SCH (09:08)
[2016-11-07] MEDS: MULTIVITAMIN TAB PO SCH (09:08)
[2016-11-07 09:52] VITALS: BP 90/55
[2016-11-07] MEDS: MoRPHine SULFATE 2 MG/ML CARP IV PRN (12:42)
--- NOTE | 2016-11-07 13:00 | Orthopedic Progress Note ---
Orthopedic Progress Note Date of Service Nov 07, 2016. Subjective Post OP Day: 2 Denies: SOB, chest pain, light headedness, nausea / vomiting Additional Notes: Pt depressed today. Lamenting on the fact she fell and hurt herself. She was recuperating from her spine surgery and was doing well. Now upset that she has taken a step back in her PT. Reassured her that she will get back to ambulating but reiterated that she would be TTWB for at least 4 weeks. C/O her legs aching this AM which she states she's had in the past. Denies calf pain. Discussed her plans for rehab. She states that she will be going to tomorrow. Pt's spirits somewhat better at the end of conversation. Objective calves soft nontender, N/V intact, dressing C/D/I, A&O x3, toes mobile Thigh soft with swelling. NT on palpation. Date Time Temp Pulse Resp B/P Pulse Ox O2 Delivery O2 Flow Rate FiO2 11/07/16 09:52 90/55 11/07/16 09:06 100/51 11/07/16 07:20 Room Air 11/07/16 07:15 36.5 95 18 168/91 95 Room Air 11/06/16 23:34 Room Air 11/06/16 23:06 37.0 85 17 126/68 96 Room Air 11/06/16 16:15 98 Room Air 11/06/16 15:10 101 18 116/71 98 Room Air Laboratory Results 24 Hours: Test 11/07/16 07:08 Hematocrit 27.5 % Hemoglobin 9.5 g/dL Assessment & Plan Assessment: POD 2 s/p ORIF Right Hip Fx with 7.3 cannulated screws. Plan: PT/OT TTWB Plan for [facility] tomorrow. Inhouse Planning Pain Management: Morphine, PO Tylenol, Oxy IR DVT Prophylaxis: TEDs, SCDs, Lovenox Discharge Planning Discharge Planning: rehab hospital
--- NOTE | 2016-11-07 13:09 | Discharge Instructions ---
Discharge Instructions Date of Service Nov 07, 2016. Admission Reason for Admission: Rt Hip Fracture Discharge Discharge Diagnosis / Problem: Right Hip Fracture Discharge Goals Goal(s): Decrease discomfort, Improve function Activity Recommendations Activity Level: Assistance Required Therapies: Physical Therapy (gait training), Occupational Therapy (ADL's and transfers) Weightbearing Status: Right toe touch . Additional Information Patient informed of condition: Yes Advance Directives: Yes DNR: No Level of Care: Acute Rehab Communicable Disease: No Prognosis: Stable Instructions / Follow-Up Instructions / Follow-Up [facility] DISCHARGE INSTRUCTIONS: HIP FRACTURE SELF CARE INSTRUCTIONS: A. You are to ambulate with a walker or crutches for approximately 6 weeks. B. You are TOE TOUCH WEIGHT BEARING on your operative lower extremity for at least 6 weeks. C. Wear low heeled shoes with non-slip soles D. Be sure that your floors are free of things that could trip you throw rugs, electrical cords, and small objects. Avoid wet and waxed floors, especially with crutches/walker/cane. E. Try to walk several times a day with rest periods between. F. You may shower 48 hours after surgery and get the incision area wet, but DO NOT soak or submerge incision area in water. (No baths, swimming pools, hot tubs ) G. Change dressing daily. If wound is dry and has no drainage, you may leave it to the open air H. Do NOT apply soap or any ointment/lotions directly over incision. I. You may use ice as needed to operative site. SPECIAL CARE INSTRUCTIONS: VERY IMPORTANT TO READ AND REVIEW A. You may be at risk for phlebitis or blood clots. a. Wear surgical stockings (CARMEN hose) for 2 weeks after surgery to improve circulation and reduce swelling. b. Take LOVENOX 40mg SQ daily for 4 weeks or as directed. This is your blood thinner. c. If you are on Coumadin- you will have daily/weekly blood work to monitor your levels. This will be done by either your family physician/ occ med physician (if you are on Coumadin chronically) versus your orthopedic surgeon. Expect a phone call the day of or the day after your blood work is drawn to adjust your dose accordingly. B. There are a few signs you need to watch for after you are home. Call [facility] at [phone] if you experience any of the following: a. If you have a temperature of 101 degrees or higher. b. Sudden increase in pain in your hip not relieved by rest or pain medication. c. Any fluid or drainage from the incision; redness of the incision. d. Shortness of breath or chest pain. B. Please call [facility] at [phone] if you have any questions or concerns about your operation or recovery. C. Call your physician if: a. Temperature is greater than 101 degrees (F). b. Pain is not relieved by prescribed pain medications. c. Increase drainage or redness from incision. d. Unanswered questions or concerns. D. Pain Medication: a. You will be prescribed pain medication upon discharge that should last till your first post-operative appointment. b. If you experience nausea and/or skin rash, discontinue this medication and contact our office for an alternative medication. c. Caution- narcotic pain medication can cause constipation. FOLLOW UP VISIT: Please call [facility] (Dr Santo) at [phone] to schedule a follow up appointment 10-14 days from the date of your surgery date. Current Hospital Diet Patient's current hospital diet: AHA Diet (Heart Healthy) Discharge Diet Recommended Diet: AHA Diet (Heart Healthy) Procedures Procedures Performed: Open reduction internal fixation right femoral neck fracture, cannulated screws. Pending Studies Studies pending at discharge: no Physician Orders On Transfer Dressing Changes: daily prn Vital Signs: routine Medical Emergencies . Who to Call and When: Medical Emergencies: If at any time you feel your situation is an emergency, please call 911 immediately. . Non-Emergent Contact Non-Emergency issues call your: Surgeon Call Non-Emergent contact if: temperature is above 101.5, your pain is not controlled, your pain is worsening, wound has increased drainage, wound has increased redness . . "Provider Documentation" section prepared by Vish Rosa. Core Measure Problem Core Measures: None [place] Drug Monitoring Program Search Results: patient reviewed within database, no issues identified
--- NOTE | 2016-11-07 13:37 | Progress Note ---
Subjective Date of Service: Nov 07, 2016. Subjective Pt evaluation today including: conversation w/ patient, physical exam, chart review, lab review, review of studies, review of inpatient medication list seems have some uncomfortable includes right hip pain and LBP, also constipation , has 2 days no BM. Review of Systems Constitutional: + fatigue, No chills, No fever, No problem reported, No sweats , No weakness, No weight loss Eyes: No diplopia, No discharge, No eye pain, No redness, No worsening of vision ENT: No dental problems, No hearing loss, No nasal symptoms, No sore throat, No tinnitus, No trouble swallowing, No unusual epistaxis Respiratory: No cough, No dyspnea at rest, No dyspnea on exertion, No hemoptysis, No shortness of breath, No sputum, No wheezing Cardiac: No PND, No chest pain, No claudication, No edema, No orthopnea, No palpitations Abdomen: No constipation, No diarrhea, No nausea, No pain, No vomiting Musculoskeletal: + joint pain, No calf pain, No muscle pain, No swelling Female : No abnormal vaginal bleeding, No dysuria, No hematuria, No incontinence, No urinary frequency, No vaginal discharge Neurologic: No balance problems, No memory loss, No numbness/tingling, No paralysis, No vertigo, No weakness Psychiatric: No anhedonism, No anxiety, No depression symptoms, No insomnia, No substance abuse Heme: No abnormal bleeding/bruising, No clotting problems, No night sweats, No swollen lymph nodes Endo: No excessive thirst, No excessive urination, No fatigue Skin: No bleeding, No color change, No itch, No new/changing skin lesions, No rash Objective Vital Signs Date Time Temp Pulse Resp B/P Pulse Ox O2 Delivery O2 Flow Rate FiO2 11/07/16 09:52 90/55 11/07/16 09:06 100/51 11/07/16 07:20 Room Air 11/07/16 07:15 36.5 95 18 168/91 95 Room Air 11/06/16 23:34 Room Air 11/06/16 23:06 37.0 85 17 126/68 96 Room Air 11/06/16 16:15 98 Room Air 11/06/16 15:10 101 18 116/71 98 Room Air Physical Exam General Appearance: WD/WN, no apparent distress, + pertinent finding (frail) Eyes: normal inspection, PERRL, EOMI, sclerae normal ENT: normal ENT inspection, hearing grossly normal, pharynx normal Neck: supple, no adenopathy, thyroid normal, no JVD, no carotid bruits, trachea midline Respiratory/Chest: chest non-tender, lungs clear, normal breath sounds, no respiratory distress, no accessory muscle use Cardiovascular: regular rate, rhythm, no edema, no gallop, no JVD, no murmur Abdomen: normal bowel sounds, non tender, soft, no organomegaly, no pulsatile mass Extremities: non-tender, normal inspection, no pedal edema, no calf tenderness , normal capillary refill, pelvis stable, + pertinent finding (righ thip dress in place ) 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, no motor/sensory deficits, alert, normal mood/affect, oriented x 3 Skin: normal color, warm/dry, no rash Lymphatic: no adenopathy Laboratory Results Last 24 Hours Test 11/07/16 07:08 White Blood Count 10.01 K/uL Red Blood Count 2.89 M/uL Hemoglobin 9.5 g/dL Hematocrit 27.5 % Mean Corpuscular Volume 95.2 fL Mean Corpuscular Hemoglobin 32.9 pg Mean Corpuscular Hemoglobin Concent 34.5 g/dl RDW Standard Deviation 50.2 fL RDW Coefficient of Variation 14.6 % Platelet Count 210 K/uL Mean Platelet Volume 8.7 fL Sodium Level 135 mmol/L Potassium Level 4.0 mmol/L Chloride Level 103 mmol/L Carbon Dioxide Level 22 mmol/L Anion Gap 10.0 mmol/L Blood Urea Nitrogen 6 mg/dl Creatinine 0.46 mg/dl Est Creatinine Clear Calc Drug Dose 93.8 ml/min Estimated GFR () 113.6 Estimated GFR (Non- 98.0 BUN/Creatinine Ratio 12.4 Random Glucose 97 mg/dl Calcium Level 8.7 mg/dl Assessment and Plan 76 y/o F with h/o HTN, presented with right hip fracture after a mechanical fall , Right hip fracture, ORIF on 11/05/2016 , no complications, no loss of consciousness during the fall Right hip fracture, ORIF on 11/05, no complications, POD 2 activity level, DVT prophylaxis and d/c planning per orthopedics continue Colace , Zavala catheter removed HTN - better, was borderline hypotensive after procedure , continue to hold Bumex, cont Lisinopril continue beta kelle with hold parameters Seizure disorder -stable, continue Dilantin RA - f/u with rheu as out pt Plan: naren zavala, f/u BP, discharge plan and DVT prophylaxis per primary team Continued [facility] stay due to: home environment unsafe for pt Discharge planning: rehab hospital
[2016-11-07 15:53] VITALS: BP 119/68; PULSE 95; TEMP 36.5; O2SAT 95
[2016-11-07] MEDS: SENNA 8.6 MG TAB PO SCH (21:07)
[2016-11-07 23:05] VITALS: BP 143/73; PULSE 87; TEMP 37; O2SAT 97
[2016-11-08] MEDS: OXYCODONE HCL IR 5 MG TAB (IMMEDIATE RELEASE) PO PRN ×3 (00:01→13:28)
[2016-11-08] MEDS: LEVOTHYROXINE 50 MCG TAB PO SCH (05:12)
[2016-11-08] MEDS: ACETAMINOPHEN 500 MG TAB PO SCH ×2 (05:13→12:19)
[2016-11-08 07:12] VITALS: BP 119/74; PULSE 91; TEMP 36.7; O2SAT 97
[2016-11-08 07:24] LABS: HEMATOCRIT 27.6 % (37-47); MEAN CELL VOLUME 95.2 fL (80-100); MEAN CORPUSCULAR HEMOGLOBIN 32.1 pg (25-34); MEAN CORPUSCULAR HGB CONC 33.7 g/dl (32-36); MEAN PLATELET VOLUME 8.7 fL (7.4-10.4); PLATELET COUNT 244 K/uL (130-400); WHITE BLOOD COUNT 8.31 K/uL (4.8-10.8)
[2016-11-08] MEDS: MoRPHine SULFATE 2 MG/ML CARP IV PRN (09:10)
[2016-11-08] MEDS: MULTIVITAMIN TAB PO SCH (09:13)
[2016-11-08] MEDS: SIMVASTATIN 40 MG TAB PO SCH (09:13)
[2016-11-08] MEDS: METOPROLOL SUCC 50MG EXT REL TAB PO SCH (09:14)
[2016-11-08] MEDS: LISINOPRIL 20 MG TAB PO SCH (09:14)
[2016-11-08] MEDS: PANTOprazole SOD 40 MG TAB PO SCH (09:14)
[2016-11-08] MEDS: ENOXAPARIN 40 MG/0.4 ML SYR SQ SCH (09:14)
[2016-11-08] MEDS: PHENYTOIN SODIUM ER 100 MG CAP PO SCH (09:14)
--- NOTE | 2016-11-08 09:24 | Orthopedic Progress Note ---
Orthopedic Progress Note Date of Service Nov 08, 2016. Subjective Post OP Day: 3 Reports: complaints (The right hip is doing ok. Most of her pain is at the right lower back. Long hx of scoliosis with a surgery ~6 months ago in [place].), feeling well, Denies: SOB, calf pain, chest pain, light headedness , nausea / vomiting Objective calves soft nontender, N/V intact, capillary refill less than 2 sec., dressing C /D/I, A&O x3, toes mobile Right thigh is soft. No ecchymosis. No erythema. Nontender right thigh or groin. Tender at the right lower back. Date Time Temp Pulse Resp B/P Pulse Ox O2 Delivery O2 Flow Rate FiO2 11/08/16 08:10 Room Air 11/08/16 07:12 36.7 91 16 119/74 97 Room Air 11/07/16 23:35 Room Air 11/07/16 23:05 37.0 87 17 143/73 97 Room Air 11/07/16 15:53 36.5 95 18 119/68 95 Room Air 11/07/16 15:30 Room Air 11/07/16 09:52 90/55 Laboratory Results 24 Hours: Test 11/08/16 07:07 Hematocrit 27.6 % Hemoglobin 9.3 g/dL Assessment & Plan Assessment: POD 3 s/p ORIF Right Hip Fx with 7.3 cannulated screws. Plan: PT/OT TTWB Plan for [facility]. Inhouse Planning Pain Management: Morphine, PO Tylenol, Oxy IR DVT Prophylaxis: TEDs, SCDs, Lovenox Discharge Planning Discharge Planning: rehab hospital
--- NOTE | 2016-11-08 10:14 | Hospitalist Progress Note ---
Hospitalist Progress Note Date of Service Nov 08, 2016. Subjective Pt evaluation today including: conversation w/ patient, physical exam, chart review, lab review, review of inpatient medication list Voiding: no voiding problems, no incontinence Patient states she is feeling well. Pain is currently well controlled. She is eating and drinking OK. Complains of constipation- having small BMs. No urinary issues. Patient denies any fever, chills, sweats, lightheadedness, dizziness, vision changes, CP, palpitations, edema, SOB, wheezing, cough, abdominal pain, nausea, vomiting, diarrhea, urinary symptoms, melena, numbness/tingling, weakness, anxiety/depression, active bleeding, or new skin discoloration/ changes. Medications Current Inpatient Medications Medications (Trade) Dose Ordered Sig/[place] Route Start Time Stop Time Status Last Admin Dose Admin Folic Acid (Folvite Tab) 1 mg DAILY PO 11/05/16 09:00 12/05/16 08:59 11/08/16 09:13 1 MG Levothyroxine Sodium (Synthroid Tab) 50 mcg DAILYBB PO 11/05/16 06:00 12/05/16 05:59 11/08/16 05:12 50 MCG Metoprolol Succinate (Toprol Xl Tab) 150 mg DAILY PO 11/05/16 09:00 12/05/16 08:59 11/08/16 09:14 150 MG Phenytoin Sodium (Dilantin Er Cap) 100 mg QDB PO 11/05/16 08:30 12/05/16 08:29 11/08/16 09:14 100 MG Phenytoin Sodium (Dilantin Er Cap) 200 mg HS PO 11/04/16 21:00 12/04/16 20:59 11/07/16 21:08 200 MG Simvastatin (Zocor Tab) 40 mg DAILY PO 11/05/16 09:00 12/05/16 08:59 11/08/16 09:13 40 MG Miscellaneous Medication (No Nsaids) 1 ea UD N/A 11/05/16 10:15 12/05/16 10:14 Morphine Sulfate (MoRPHine SULFATE INJ) 1 mg Q1HWA PRN IV 11/05/16 10:15 11/19/16 10:14 11/08/16 09:10 1 MG Acetaminophen (Tylenol Tab) 1,000 mg Q8H PO 11/05/16 12:00 12/05/16 11:59 11/08/16 05:13 1,000 MG Magnesium Hydroxide (Milk Of Magnesia Susp) 30 ml Q6H PRN PO 11/05/16 10:15 12/05/16 10:14 11/07/16 11:54 30 ML Bisacodyl (Dulcolax Supp) 10 mg DAILY PRN UT 11/05/16 10:15 12/05/16 10:14 Sodium Biphosphate/ Sodium Phosphate (Fleet Enema) 132 ml DAILY PRN UT 11/05/16 10:15 12/05/16 10:14 Senna (Senokot Tab) 17.2 mg HS PO 11/05/16 21:00 12/05/16 20:59 11/07/16 21:07 17.2 MG Diphenhydramine HCl (Benadryl Cap) 25 mg Q8H PRN PO 11/05/16 10:15 12/05/16 10:14 11/05/16 23:17 25 MG Al Hydrox/Mg Hydrox/Simethicone (Maalox Max Susp) 15 ml Q4H PRN PO 11/05/16 10:15 12/05/16 10:14 Zolpidem Tartrate (Ambien Tab) 5 mg HSZ PRN PO 11/05/16 10:15 12/05/16 10:14 Multivitamins (Multivitamin Tab) 1 tab QAM PO 11/06/16 09:00 12/06/16 08:59 11/08/16 09:13 1 TAB Pantoprazole Sodium (Protonix Tab) 40 mg QAM PO 11/06/16 09:00 12/06/16 08:59 11/08/16 09:14 40 MG Enoxaparin Sodium (Lovenox Inj) 40 mg Q24H SQ 11/06/16 08:00 12/06/16 07:59 11/08/16 09:14 40 MG Enoxaparin Sodium (Consult) 1 ea UD PRN N/A 11/05/16 15:15 12/05/16 15:14 Lisinopril (Zestril Tab) 20 mg DAILY PO 11/06/16 09:00 12/06/16 08:59 11/08/16 09:14 20 MG Docusate Sodium (coLACE CAP) 100 mg BID PRN PO 11/06/16 09:15 12/06/16 09:14 Oxycodone HCl (Roxicodone Immediate Rel Tab) 1 tab for pain 1,2,3,... Q4H PRN PO 11/06/16 10:30 11/20/16 10:29 11/08/16 05:28 10 MG Objective Vital Signs Date Time Temp Pulse Resp B/P Pulse Ox O2 Delivery O2 Flow Rate FiO2 11/08/16 08:10 Room Air 11/08/16 07:12 36.7 91 16 119/74 97 Room Air 11/07/16 23:35 Room Air 11/07/16 23:05 37.0 87 17 143/73 97 Room Air 11/07/16 15:53 36.5 95 18 119/68 95 Room Air 11/07/16 15:30 Room Air Physical Exam General Appearance: no apparent distress Eyes: normal inspection, PERRL ENT: hearing grossly normal Neck: supple Respiratory/Chest: lungs clear, no respiratory distress, no accessory muscle use Cardiovascular: regular rate, rhythm Abdomen: normal bowel sounds, non tender, soft Extremities: no pedal edema, no calf tenderness, + pertinent finding (TEDs/ SCDs on ) Neurologic/Psychiatric: alert, normal mood/affect, oriented x 3 Skin: normal color, warm/dry, no rash Laboratory Results Last 24 Hours Test 11/08/16 07:07 White Blood Count 8.31 K/uL Red Blood Count 2.90 M/uL Hemoglobin 9.3 g/dL Hematocrit 27.6 % Mean Corpuscular Volume 95.2 fL Mean Corpuscular Hemoglobin 32.1 pg Mean Corpuscular Hemoglobin Concent 33.7 g/dl RDW Standard Deviation 50.5 fL RDW Coefficient of Variation 14.6 % Platelet Count 244 K/uL Mean Platelet Volume 8.7 fL Assessment and Plan 76 y/o F with h/o HTN, presented with right hip fracture after a mechanical fall , no loss of consciousness during the fall Right hip fracture, ORIF on 11/05, no complications- POD 3: - PT/OT, DVT prophylaxis and pain management as per primary team - Follow PRP and CBC HTN - improved, was borderline hypotensive after procedure: - Continue to hold Bumex- resume at discharge - Continue Lisinopril and beta kelle with hold parameters Seizure disorder -stable: Continue Dilantin RA: f/u with rheumatoid as outpt HDL: Continue Simvastatin Hypothyroidism: Continue Synthroid GI Prophylaxis: Protonix daily, Maalox PRN, IV Zofran PRN, Colace and/or Milk of Mag PRN DVT prophylaxis: As per primary team Dispo: Stable for discharge from medical standpoint. Discharge as per primary team
[2016-11-08] MEDS ORDERED: LVNIS40 SQ (12:44)
[2016-11-08] MEDS ORDERED: SNK PO (12:44)
[2016-11-08] MEDS ORDERED: ACET-1138 PO (12:44)
[2016-11-08] MEDS ORDERED: RXC5 PO (12:44)
[2016-11-08 13:20] VITALS: BP 119/74; PULSE 91; TEMP 36.7; O2SAT 97
[2016-11-09] MEDS ORDERED: FERROUS SULFATE 325 MG TAB PO SCH (09:00)
--- NOTE | 2016-11-19 21:21 | Discharge Summary ---
Orthopedic Discharge Summary Admission Date/Reason Nov 04, 2016 at 13:48 Rt Hip Fracture. Discharge Date/Disposition Nov 08, 2016 Rehab Diagnosis Principal Diagnosis: right hip femoral neck fx Procedure(s) Performed ORIF right hip fx with three 7.3 mm cannulated screws Consultations Medicine Medication Reconciliation New Medications: Acetaminophen (Tylenol Extra Strength) 500 Mg Tab 1000 MG PO Q8H for 14 Days, #84 TAB Enoxaparin (Enoxaparin Sodium) 40 Mg/0.4 Ml Inj 40 MG SQ Q24H for 14 Days Oxycodone HCl (Oxycodone HCl) 5 Mg Tab 5-10 MG PO Q4H PRN for Pain, #36 TAB Senna (Senna Lax) 8.6 Mg Tab 17.2 MG PO HS for 10 Days, TAB hold for loose stools Continued Medications: Alendronate/Cholecalciferol (Fosamax+D 70MG/2800 Iu) 70 Mg Tab 1 TABLET PO WK, TAB Bumetanide (Bumetanide) 1 Mg Tab 2 MG PO BID Calcium Citrate-Vitamin D (Citracal + D3 Maximum) 1 Tab Tab DAILY 2 tabs daily Cholecalciferol (Vitamin D3) 2,000 Unit Cap 1 CAP PO DAILY for 30 Days, #30 CAP 3 Refills Folic Acid (Folvite) 1 Mg Tab 1 TAB PO DAILY for 90 Days, #90 TAB 1 Refill Levothyroxine Sodium (Levothyroxine Sodium) 50 Mcg Tab 1 TAB PO DAILY for 30 Days, #30 TAB 5 Refills Lisinopril (Zestril) 20 Mg Tab 20 MG PO DAILY, TAB Metoprolol Succ (Toprol Xl) (Toprol-Xl ) 100 Mg Tabcr 100 MG PO DAILY, TAB 1.5 tablets daily Multivitamin (Multivitamin) Tab 1 TAB PO DAILY, TAB Phenytoin Sodium (Dilantin) 100 Mg Cap 100 MG PO QDB for 30 Days, CAP 3 Refills 1 cap in the morning Phenytoin Sodium (Dilantin) 100 Mg Cap 200 MG PO HS for 30 Days, CAP 3 Refills 2 caps at night Simvastatin (Zocor) 40 Mg Tab 40 MG PO DAILY, TAB Sulfasalazine (Azulfidine) 500 Mg Tab 1000 MG PO BID, TAB 2 in the morning, 2 after dinner; not taking until back heals Discontinued Medications: Ibuprofen Tab (Advil) 200 Mg Tab 200 MG PO BID, TAB 2 tabs in the afternoon and 1 at night Methotrexate (Methotrexate) 2.5 Mg Tab 2.5 MG PO 10XWK, TAB 10 tabs weekly; not taking until back heals Admission Physical Exam As per Admitting History & Physical. Hospital Course The patient was admitted on 11.04.16 for a right hip fx. On 11.05.16, an ORIF of the right hip was performed. Throughout the post operative stay, pain control was a main goal. The hip continued to do well. For the most part, her pain was at her right lower back, which has been an area of pain since a procedure in [place] ~6 months ago. She worked with PT to maintain toe touch WB on the RLE. On POD #3, a bed was available at [facility] and she was discharged that day, 11.08.16. Discharge Instructions Please refer to the electronic Patient Visit Report (Discharge Instructions) for additional information. [facility] [place] DISCHARGE INSTRUCTIONS: HIP FRACTURE SELF CARE INSTRUCTIONS: A. You are to ambulate with a walker or crutches for approximately 6 weeks. B. You are TOE TOUCH WEIGHT BEARING on your operative lower extremity for at least 6 weeks. C. Wear low heeled shoes with non-slip soles D. Be sure that your floors are free of things that could trip you throw rugs, electrical cords, and small objects. Avoid wet and waxed floors, especially with crutches/walker/cane. E. Try to walk several times a day with rest periods between. F. You may shower 48 hours after surgery and get the incision area wet, but DO NOT soak or submerge incision area in water. (No baths, swimming pools, hot tubs ) G. You may have a large, band-aid like dressing over your incision (Aquacel). This will remain on your incision for 7 days, and then can be removed. You CAN shower with this on. If incision is leaking through the dressing, please call the office . H. Do NOT apply soap or any ointment/lotions directly over incision. I. You may use ice as needed to operative site. SPECIAL CARE INSTRUCTIONS: VERY IMPORTANT TO READ AND REVIEW A. You may be at risk for phlebitis or blood clots. a. Wear surgical stockings (CARMEN hose) for 2 weeks after surgery to improve circulation and reduce swelling. b. Take ASPIRIN 325 mg twice daily/ LOVENOX 40mg SQ daily / LOVENOX 30mg SQ BID for 4 weeks or as directed. This is your blood thinner. c. If you are on Coumadin- you will have daily/weekly blood work to monitor your levels. This will be done by either your family physician/ inpatient coder (if you are on Coumadin chronically) versus your orthopedic surgeon. Expect a phone call the day of or the day after your blood work is drawn to adjust your dose accordingly. B. There are a few signs you need to watch for after you are home. Call [facility] at [phone] if you experience any of the following: a. If you have a temperature of 101 degrees or higher. b. Sudden increase in pain in your hip not relieved by rest or pain medication. c. Any fluid or drainage from the incision; redness of the incision. d. Shortness of breath or chest pain. B. Please call [facility] at [phone] if you have any questions or concerns about your operation or recovery. C. Call your physician if: a. Temperature is greater than 101 degrees (F). b. Pain is not relieved by prescribed pain medications. c. Increase drainage or redness from incision. d. Unanswered questions or concerns. D. Pain Medication: a. You will be prescribed pain medication upon discharge that should last till your first post-operative appointment. b. If you experience nausea and/or skin rash, discontinue this medication and contact our office for an alternative medication. c. Caution- narcotic pain medication can cause constipation. FOLLOW UP VISIT: Please call [facility] at [phone] to schedule a follow up appointment 10-14 days from the date of your surgery date.
== END 2016-11-08 14:35 | DRG 482 ==
LOC: C.MSN 13:48
PROVIDERS: ADMIT Orthopaedic Surgery Sports Medicine; ATTEND Orthopaedic Surgery Sports Medicine
PROC: 0QS604Z Reposition Right Upper Femur with Internal Fixation Device, Open Approach (ICD-10-PCS; principal; 2016-11-05 08:00)
DX: S72.001A Fracture of unspecified part of neck of right femur, initial encounter for closed fracture (principal); I10 Essential (primary) hypertension; G40.909 Epilepsy, unspecified, not intractable, without status epilepticus; M81.0 Age-related osteoporosis without current pathological fracture; E03.9 Hypothyroidism, unspecified; E78.00 Pure hypercholesterolemia, unspecified; W19.XXXA Unspecified fall, initial encounter